=== PATIENT | male | born 1995 | race Caucasian/White ===

== ENCOUNTER 2022-07-24 22:28 | Emergency (ER) | payer SELFPAY ==
[~2022-07-24] VITALS: Ht 177.8 cm; Wt 117.9 kg
[2022-07-24] MEDS ORDERED: PREDNISONE 20 MG TAB PO STA (22:35)
[2022-07-24] MEDS ORDERED: TRAMADOL HCL 50 MG TAB PO STA (22:35)
[2022-07-24] MEDS ORDERED: PREDNISONE20 MG PO (23:46)
[2022-07-24] MEDS ORDERED: ULTRAM 50MG50 MG PO (23:46)
[2022-07-25] MEDS ORDERED: BUPIVACAINE HCL 0.25% 10ML MPF VIAL INJ ONE
== END 2022-07-24 23:53 | disposition home or self-care (01) ==
LOC: ER 22:34
DX: M79.672 Pain in left foot (principal); M10.9 Gout, unspecified; M79.89 Other specified soft tissue disorders; E78.5 Hyperlipidemia, unspecified
CPT/HCPCS: 73630; 99283; J7512